=== PATIENT | male | born 1990 | race American Indian/Alaskan Native ===

== ENCOUNTER 2017-01-04 12:08 | Emergency (ER) | payer OTHER ==
[2017-01-04 12:56] VITALS: BMI 31.5
[2017-01-04 13:01] VITALS: RESP 18
[2017-01-04] MEDS ORDERED: Naproxen 550 mg Tab PO STA (13:20)
[2017-01-04] MEDS ORDERED: Naproxen 550 mg Tab PO ONE (13:27)
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
[2017-01-04 14:06] VITALS: BP 146/76; PULSE 73; TEMP 98
[2017-01-04 15:23] VITALS: O2SAT 98
== END 2017-01-04 14:32 | disposition home or self-care (01) ==
LOC: C.ER 12:08
DX: S39.012A Strain of muscle, fascia and tendon of lower back, initial encounter (principal); V43.62XA Car passenger injured in collision with other type car in traffic accident, initial encounter; Y92.410 Unspecified street and highway as the place of occurrence of the external cause